=== PATIENT | female | born 1955 | race Two or more races ===

== ENCOUNTER 2024-04-08 09:44 | Outpatient (REF) | payer MEDICARE, MEDICAID, SELFPAY ==
[2024-04-08 11:23] LABS: Vitamin B12 1276 pg/mL (200-900)
== END 2024-04-08 09:45 | disposition home or self-care (01) ==
LOC: HO.LAB 09:44
PROVIDERS: PCP Internal Medicine; Visit Provider Psychiatry & Neurology Neurology
DX: G30.9 Alzheimer's disease, unspecified (principal)
CPT/HCPCS: 36415; 82607

== ENCOUNTER 2024-10-01 14:10 | Outpatient (REF) | payer MEDICARE, MEDICAID, SELFPAY ==
[2024-10-01 15:31] LABS: Vitamin B12 976 pg/mL (200-900)
== END 2024-10-01 14:11 | disposition home or self-care (01) ==
LOC: HO.LAB 14:10
PROVIDERS: PCP Internal Medicine; Visit Provider Psychiatry & Neurology Neurology
DX: G30.9 Alzheimer's disease, unspecified (principal)
CPT/HCPCS: 36415; 82607

== ENCOUNTER 2025-10-11 08:45 | Outpatient (AMB) | payer MEDICARE, MEDICAID, SELFPAY ==
--- NOTE | 2025-10-11 08:48 | A.OFFVIS_ITS ---
Intake Visit Reasons: follow up 6m HPI Comments Details: 70 years old woman with diagnosis of bipolar disorder was seen for dementia with symptoms of forgetfulness initially noted in 2023. She is presenting for a follow-up visit for management of a slow-progressing cognitive condition. According to her caregiver, the patient demonstrates significant memory impairment, which is more pronounced in unfamiliar environments. While she functions well at home or at her brother's house, a r ecent trip to [place] highlighted her deficits; she became non-talkative, required prompting to engage in conversation, and asked repetitive questions during travel. The patient has a long-standing diagnosis of bipolar disorder, established approximately 13-14 years ago and managed by a psychiatrist. Her caregiver reports her mood is currently very good with no temperament issues. Her sleep h as reportedly improved since her Depakote was changed to be taken at night. Her current medications, managed in a pill box by her caregiver, include donepezil 10 mg, memantine (due for a refill), Depakote ER 500 mg at night, and bupropion 75 mg. She also takes levothyroxine, amlodipine 5 mg daily, calcium twice daily, melatonin twice daily, and vitamins. She has discontinued Fosamax per a doctor's recommendation. Despite her cognitive challenges, the patient remains physically well and is able to cook. Her caregiver has taken an active role in coordinating her medical appointments to prevent missed visits. Review of Systems Narrative - Neurological: Reports memory deficits requiring prompts. Reports increased con fusion and repetitive questioning in unfamiliar environments. - Psychiatric: Caregiver reports a good mood. Denies bad mood or temperament issues. - Constitutional: Reports good sleep since medication adjustment. Caregiver reports she is physically well enough to cook. Physical Exam Neuro Other: Mental Status: She is alert and awake with normal spontaneity of speech fluency comprehension and affect. Cranial Nerves: CN II: Visual pham full to confrontation, visual acuity intact. CN III, IV, : Pupils equal, round, reactive to light and accommodation. Extraocular movements are normal. CN V: Facial sensation is normal. CN VII: Facial movements symmetrical. CN VIII: Hearing intact to bedside conversation is normal. CN IX, X: Palate elevates symmetrically. CN XI: Shoulder shrug and head turn symmetrical. CN XII: Tongue midline without atrophy or fasciculations. Gait: No significant abnormality noted. Extrapyramidal: Full facial expressions and blinking. No rigidity. Movements are appropriate with no tremor or abnormality. Speech: Normal; no dysarthria or tremor. Results Reviewed Results Reviewed: Laboratory Tests 04/08/24 10/01/24 09:57 14:19 Vitamin B12 1276 H 976 H Assessment & Plan Assessment & Plan (1) Alzheimer dementia: Comment: MRI brain WO at [facility] in April 2024: Mild to mod atrophy and mild MV. Code(s): G30.9 - Alzheimer's disease, unspecified; F02.80 - Dementia in other diseases classified elsewhere, unspecified severity, without behavioral disturbance, psychotic disturbance, mood disturbance, and anxiety Category: Medical Qualifiers: Alzheimer's disease onset: early onset Dementia severity: mild Dementia behavioral or psychological symptom: without behavioral, psychotic, or mood disturbance or anxiety Qualified Code(s): G30.0 - Alzheimer's disease with early onset; F02.A0 - Dementia in other diseases classified elsewhere, mild, without behavioral disturbance, psychotic disturbance, mood disturbance, and anxiety Plan Impression: a: Alzheimer disease b: Mood disorder Rec: a: Continue donepezil 10mg one at night b: Memantine 10mg bid c: She takes buproprion and depakote through her psychiatrsit. d: Stay socially and physically active I discussed with the patient and her caregiver that her cognitive condition is very slow-progressing and she is physically doing well. We agreed to continue her current medication regimen without changes. I advised a follow-up visit in six months to monitor her condition. Coding Level of Care Code Est Pt Level 4 (24259) Diagnoses Mild early onset Alzheimer's dementia without behavioral disturbance, psychotic disturbance, mood disturbance, or anxiety G30.0; F02.A0 Alzheimer's disease onset: early onset Dementia severity: mild Dementia behavioral or psychological symptom: without behavioral, psychotic, or mood disturbance or anxiety
== END 2025-10-11 09:03 | disposition home or self-care (01) ==
LOC: HO.HSM 08:46
PROVIDERS: PCP Internal Medicine; Referring Provider Internal Medicine; Visit Provider Psychiatry & Neurology Neurology
DX: G30.0 Alzheimer's disease with early onset (principal); F02.A0 Dementia in other diseases classified elsewhere, mild, without behavioral disturbance, psychotic disturbance, mood disturbance, and anxiety
CPT/HCPCS: 99214

== ENCOUNTER → 2025-10-11 08:45 | Outpatient (BNVA) | payer MEDICARE, MEDICAID, SELFPAY | PROVIDERS: PCP Internal Medicine; Referring Provider Internal Medicine; Visit Provider Psychiatry & Neurology Neurology | DX: G30.0 Alzheimer's disease with early onset (principal); F02.80 Dementia in other diseases classified elsewhere, unspecified severity, without behavioral disturbance, psychotic disturbance, mood disturbance, and anxiety | CPT/HCPCS: 99212 ==